=== PATIENT | male | born 1945 | race African-American/Black ===

== ENCOUNTER 2017-07-24 12:09 | Emergency (ER) | payer MEDICARE, MEDICAID ==
[~2017-07-24] VITALS: Ht 172.7 cm; Wt 50.0 kg
[2017-07-24 15:01] VITALS: BP 118/70
== END 2017-07-24 15:03 | disposition home or self-care (01) ==
LOC: ER 12:19
DX: K59.00 Constipation, unspecified (principal)
CPT/HCPCS: 74000; 99283

== ENCOUNTER 2019-12-07 15:49 | Inpatient (IN) | payer MEDICARE, MEDICAID ==
[~2019-12-07] VITALS: Ht 175.3 cm; Wt 59.0 kg
[2019-12-07] MEDS ORDERED: SODIUM CHLORIDE 0.9% 1,000 ML IV ONE ×2 (16:58→20:20)
[2019-12-07] MEDS ORDERED: ONDANSETRON HCL 4MG/2ML INJ IV STA (16:58)
[2019-12-07 17:53] LABS: BASOPHILS % 0.4 % (0.0-2.0); EOSINOPHILS % 0.1 % (0.0-5.0); HEMATOCRIT. 52.5 % (42.0-52.0); HEMOGLOBIN. 17.8 g/dL (14.0-18.0); LYMPHOCYTES % 8.3 % (20.0-50.0); MEAN CORPUSCULAR HEMOGLOBIN 31.8 pg (28.0-32.0); MEAN CORPUSCULAR VOLUME 93.8 fL (80.0-94.0); MONOCYTES % 5.6 % (2.0-8.0); NEUTROPHILS % 85.6 % (40.0-76.0); PLATELET 307 x1000/uL (130-400); RED CELL DISTRIBUTION WIDTH 14.6 % (11.6-14.6)
[2019-12-07 17:59] LABS: CHLORIDE 93 mEq/L (98-107)
[2019-12-07 18:12] LABS: INR 0.9; PROTHROMBIN TIME 10.3 sec (9.6-11.0)
[2019-12-07] MEDS ORDERED: PIPERACILLIN/TAZ 3.375G PREMIX 50 ML IV ONE (18:15)
[2019-12-07] MEDS ORDERED: SODIUM CHLORIDE 0.9% 1000ML BAG (SEPSIS BOLUS) IV ONE (18:15)
[2019-12-07 18:37] LABS: CLARITY URINE CLEAR (CLEAR); COLOR URINE DARK YELLOW (YELLOW); KETONES URINE NEGATIVE (NEGATIVE); LEUKOCYTE ESTERASE URINE NEGATIVE (NEGATIVE); NITRITE URINE NEGATIVE (NEGATIVE); OCCULT BLOOD URINE NEGATIVE (NEGATIVE); PROTEIN URINE TRACE (NEGATIVE); SPECIFIC GRAVITY URINE 1.037 (1.005-1.030)
[2019-12-07] MEDS ORDERED: PIPERACILLIN/TAZOBACTAM 3.375 G in DEXT 5% WATER 100 ML IV NR (19:00)
[2019-12-07 22:00] VITALS: BP 140/94
[2019-12-08] VITALS (7 sets, daily range): BP systolic 118–136; BP diastolic 75–86
[2019-12-08] MEDS: DEXT 5%/0.9% NACL KCL 20MEQ/L 1,000 ML IV SCH ×2 (08:03→23:52)
[2019-12-08 15:14] LABS: CHLORIDE 99 mEq/L (98-107)
[2019-12-08 15:15] LABS: BASOPHILS % 0.3 % (0.0-2.0); EOSINOPHILS % 0.8 % (0.0-5.0); HEMATOCRIT. 44.3 % (42.0-52.0); HEMOGLOBIN. 15.1 g/dL (14.0-18.0); MEAN CORPUSCULAR HEMOGLOBIN 31.8 pg (28.0-32.0); MEAN CORPUSCULAR VOLUME 93.3 fL (80.0-94.0); MEAN PLATELET VOLUME 8.3 fl (7.4-10.4); MONOCYTES % 9.7 % (2.0-8.0); NEUTROPHILS % 75.2 % (40.0-76.0); PLATELET 248 x1000/uL (130-400); RED BLOOD CELL COUNT 4.75 mill/uL (4.7-6.1); RED CELL DISTRIBUTION WIDTH 14.1 % (11.6-14.6)
[2019-12-08] MEDS ORDERED: POTASSIUM CHLORIDE 20MEQ TABLET SR PO NR (17:00)
[2019-12-08] MEDS: MORPHINE SULFATE 2 MG/ML CPJ (NOT FOR IM USE) IV PRN (20:10)
[2019-12-08] MEDS: ONDANSETRON HCL 4MG/2ML INJ IV PRN (20:11)
[2019-12-09] VITALS: BP 112/75
[2019-12-09 03:56] VITALS: BP 105/65
[2019-12-09 08:00] VITALS: BP 118/75
[2019-12-09] MEDS: DEXT 5%/0.9% NACL KCL 20MEQ/L 1,000 ML IV SCH ×3 (11:06→19:31)
[2019-12-09] MEDS: MORPHINE SULFATE 2 MG/ML CPJ (NOT FOR IM USE) IV PRN (11:06)
[2019-12-09] MEDS: ONDANSETRON HCL 4MG/2ML INJ IV PRN (11:06)
[2019-12-09 12:00] VITALS: BP 102/78
[2019-12-09 16:00] VITALS: BP 123/87
[2019-12-09 20:00] VITALS: BP 120/76
[2019-12-10] VITALS: BP 118/70
[2019-12-10] MEDS: DEXT 5%/0.9% NACL KCL 20MEQ/L 1,000 ML IV SCH ×2 (02:50→16:34)
[2019-12-10 04:00] VITALS: BP 109/76
[2019-12-10 06:29] LABS: CHLORIDE 112 mEq/L (98-107)
[2019-12-10 08:00] VITALS: BP 111/70
[2019-12-10 12:00] VITALS: BP 121/77
[2019-12-10] MEDS ORDERED: BISACODYL 10MG SUPP PR SCH (12:15)
[2019-12-10] MEDS ORDERED: BISACODYL 10MG SUPP PR PRN (12:15)
[2019-12-10 16:00] VITALS: BP 135/79
[2019-12-10 20:00] VITALS: BP 101/59
[2019-12-11] VITALS: BP 125/76
[2019-12-11] MEDS: DEXT 5%/0.9% NACL KCL 20MEQ/L 1,000 ML IV SCH ×2 (00:53→11:41)
[2019-12-11] MEDS: MORPHINE SULFATE 2 MG/ML CPJ (NOT FOR IM USE) IV PRN (00:59)
[2019-12-11 04:00] VITALS: BP 102/75
[2019-12-11 08:00] VITALS: BP 136/82
[2019-12-11 11:48] VITALS: BP 112/81
[2019-12-11 13:52] VITALS: BP 112/81
== END 2019-12-11 14:55 | disposition home or self-care (01) | DRG 247 ==
LOC: ER 15:49 → 5WST 19:09 → EDBEDREQ 19:12 → EDBEDREQTM 19:12 → ENRESERV 20:53
PROVIDERS: ADMIT Internal Medicine; ATTEND Internal Medicine
PROC: 0D9670Z Drainage of Stomach with Drainage Device, Via Natural or Artificial Opening (ICD-10-PCS; principal; 2019-12-07)
DX: K56.699 Other intestinal obstruction unspecified as to partial versus complete obstruction (principal); E87.2 Acidosis; E87.1 Hypo-osmolality and hyponatremia; E87.8 Other disorders of electrolyte and fluid balance, not elsewhere classified; F17.210 Nicotine dependence, cigarettes, uncomplicated; Z71.6 Tobacco abuse counseling
CPT/HCPCS: 36415; 71045; 74018; 74176; 80048; 80053; 81003; 82962; 83605; 84484; 85025; 93005; 99291; J2270; J2405; J2543; J7030; J7060

== ENCOUNTER 2019-12-18 09:50 | Emergency (ER) | payer MEDICARE, MEDICAID ==
[~2019-12-18] VITALS: Ht 177.8 cm; Wt 59.0 kg
[2019-12-18] MEDS ORDERED: SODIUM CHLORIDE 0.9% 1,000 ML IV ONE (10:05)
[2019-12-18] MEDS ORDERED: ONDANSETRON HCL 4MG/2ML INJ IV STA (10:05)
[2019-12-18 10:39] LABS: BASOPHILS % 0.3 % (0.0-2.0); CHLORIDE 89 mEq/L (98-107); EOSINOPHILS % 0.2 % (0.0-5.0); HEMATOCRIT. 51.1 % (42.0-52.0); HEMOGLOBIN. 17.5 g/dL (14.0-18.0); LYMPHOCYTES % 11.8 % (20.0-50.0); MEAN CORPUSCULAR HEMOGLOBIN 31.6 pg (28.0-32.0); MEAN PLATELET VOLUME 8.1 fl (7.4-10.4); MONOCYTES % 10.1 % (2.0-8.0); NEUTROPHILS % 77.6 % (40.0-76.0); PLATELET 348 x1000/uL (130-400); RED BLOOD CELL COUNT 5.55 mill/uL (4.7-6.1); RED CELL DISTRIBUTION WIDTH 13.8 % (11.6-14.6)
[2019-12-18 10:49] LABS: INR 0.9; PROTHROMBIN TIME 10.3 sec (9.6-11.0)
[2019-12-18] MEDS ORDERED: SODIUM CHLORIDE 0.9% 1,000 ML IV SCH (12:16)
[2019-12-18] MEDS ORDERED: PIPERACILLIN/TAZ 3.375G PREMIX 50 ML IV SCH (12:30)
[2019-12-18] MEDS ORDERED: ONDANSETRON HCL 4MG/2ML INJ IV PRN (12:30)
[2019-12-18] MEDS ORDERED: IPRATROPIUM/ALBUTEROL 0.5-3(2.5)MG/3ML NEB HHN PRN (12:30)
[2019-12-18] MEDS ORDERED: MORPHINE SULFATE 4 MG/ML CPJ (NOT FOR IM USE) IV PRN (12:30)
[2019-12-18] MEDS ORDERED: PIPERACILLIN/TAZ 3.375G PREMIX 50 ML IV ONE (12:30)
[2019-12-18 12:35] LABS: PHOSPHORUS 5.6 mg/dL (2.5-4.9)
[2019-12-18 14:10] VITALS: BP 101/76
[2019-12-18] MEDS ORDERED: PIPERACILLIN/TAZOBACTAM 3.375 G in DEXT 5% WATER 100 ML IV SCH (22:00)
== END 2019-12-18 15:00 | disposition left against medical advice (07) ==
LOC: ER 10:05 → CANBEDREQ 16:44
DX: K56.609 Unspecified intestinal obstruction, unspecified as to partial versus complete obstruction (principal); R11.2 Nausea with vomiting, unspecified; K59.00 Constipation, unspecified
CPT/HCPCS: 36415; 74176; 80053; 83690; 83735; 84100; 85025; 85610; 96365; 96375; 99284; J2405; J2543; J7030

== ENCOUNTER 2023-07-14 17:37 | Emergency (ER) | payer MEDICARE, OTHER ==
[~2023-07-14] VITALS: Ht 175.3 cm; Wt 64.0 kg
[2023-07-14 17:41] VITALS: BP 123/81; PULSE 88; RESP 18; TEMP 97.6; O2SAT 98
== END 2023-07-14 19:45 | disposition left against medical advice (07) ==
LOC: ER 17:37
DX: R10.9 Unspecified abdominal pain (principal); Z53.21 Procedure and treatment not carried out due to patient leaving prior to being seen by health care provider
CPT/HCPCS: 99281

== ENCOUNTER 2023-08-17 00:57 | Emergency (ER) | payer MEDICARE, OTHER ==
[~2023-08-17] VITALS: Ht 177.8 cm; Wt 70.0 kg
[2023-08-17 01:03] VITALS: BP 155/60; PULSE 66; RESP 16; O2SAT 98
[2023-08-17] MEDS ORDERED: ACETAMINOPHEN 325MG TABLET PO STA (08:18)
[2023-08-17 09:07] LABS: HEMATOCRIT. 39.2 % (42.0-52.0); HEMOGLOBIN. 13.4 g/dL (14.0-18.0); MEAN CORPUSCULAR HEMOGLOBIN 31.4 pg (28.0-32.0); MEAN CORPUSCULAR HGB CONC 34.2 g/dL (31.0-37.0); MEAN CORPUSCULAR VOLUME 92.1 fL (80.0-94.0); MEAN PLATELET VOLUME 7.6 fl (7.4-10.4); PLATELET 257 x1000/uL (130-400); RED BLOOD CELL COUNT 4.26 mill/uL (4.7-6.1); RED CELL DISTRIBUTION WIDTH 14.5 % (11.6-14.6); WHITE BLOOD COUNT 7.2 x1000/uL (4.5-11.0)
[2023-08-17 09:11] LABS: DIFFERENTIAL COMMENT 1
[2023-08-17 09:25] LABS: PROTHROMBIN TIME 11.2 sec (9.6-11.0)
[2023-08-17 09:29] LABS: PLATELET ESTIMATE NORMAL
[2023-08-17 09:42] LABS: ALANINE AMINOTRANSFERASE 8 IU/L (10-49); ALBUMIN 3.9 g/dL (3.2-4.8); ASPARTATE AMINOTRANSFERASE 16 IU/L (<34); BILIRUBIN TOTAL 0.7 mg/dL (0.1-1.0); CALCIUM 9.1 mg/dL (8.7-10.4); CARBON DIOXIDE 28 mEq/L (21-32); CHLORIDE 99 mEq/L (98-107); CREATININE 0.6 mg/dL (0.6-1.3); GLUCOSE 101 mg/dL (70-105); POTASSIUM 3.9 mEq/L (3.5-5.1); PROTEIN TOTAL 7.2 g/dL (6.0-8.3); SODIUM 133 mEq/L (136-145); UREA NITROGEN BLOOD 10 mg/dL (9-23)
[2023-08-17] MEDS ORDERED: ACETAMINOPHEN 325MG TABLET PO NR (11:26)
[2023-08-17 11:33] VITALS: TEMP 98.5
== END 2023-08-17 13:11 | disposition home or self-care (01) ==
LOC: ER 00:57
DX: K46.9 Unspecified abdominal hernia without obstruction or gangrene (principal)
CPT/HCPCS: 36415; 74176; 80053; 85025; 99284